=== PATIENT | male | born 1990 | race African-American/Black ===

== ENCOUNTER 2017-11-06 19:21 | Emergency (ER) | payer OTHER ==
[~2017-11-06] VITALS: Ht 180.3 cm; Wt 95.9 kg
[2017-11-06] MEDS ORDERED: METH500T PO (20:05)
[2017-11-06] MEDS ORDERED: VAL5T PO (20:05)
[2017-11-06 20:20] VITALS: BP 152/62
== END 2017-11-06 20:21 | disposition home or self-care (01) ==
LOC: ER 19:22
DX: S29.012A Strain of muscle and tendon of back wall of thorax, initial encounter (principal); R07.89 Other chest pain; M62.830 Muscle spasm of back; X50.9XXA Other and unspecified overexertion or strenuous movements or postures, initial encounter; Y93.89 Activity, other specified; Y92.89 Other specified places as the place of occurrence of the external cause; Y99.8 Other external cause status
CPT/HCPCS: 99283

== ENCOUNTER 2018-05-12 10:23 | Emergency (ER) | payer MEDICAID ==
[~2018-05-12] VITALS: Ht 180.3 cm; Wt 122.7 kg
[~2018-05-12 10:23] MED LIST: METH500T PO
[2018-05-12 10:24] VITALS: BP 144/81
[2018-05-12] MEDS ORDERED: acetaminophen 325mg tablet PO ONE (10:55)
[2018-05-12] MEDS ORDERED: ibuprofen tablet 400 MG TABLET PO ONE (10:55)
[2018-05-12] MEDS ORDERED: PRED20TA PO (10:56)
== END 2018-05-12 11:14 | disposition home or self-care (01) ==
LOC: ER 10:24
DX: R20.2 Paresthesia of skin (principal); M54.9 Dorsalgia, unspecified; R07.81 Pleurodynia; Z88.1 Allergy status to other antibiotic agents; Z79.899 Other long term (current) drug therapy
CPT/HCPCS: 99283

== ENCOUNTER 2021-05-12 14:21 | Emergency (ER) | payer MEDICAID ==
[~2021-05-12] VITALS: Ht 180.3 cm; Wt 125.7 kg
[2021-05-12 15:01] VITALS: BP 129/77
== END 2021-05-12 23:07 | disposition left against medical advice (07) ==
LOC: ER 14:22
DX: R21 Rash and other nonspecific skin eruption (principal); Z53.21 Procedure and treatment not carried out due to patient leaving prior to being seen by health care provider

== ENCOUNTER 2021-08-23 09:52 | Emergency (ER) | payer MEDICAID ==
[~2021-08-23] VITALS: Ht 180.3 cm; Wt 121.8 kg
[2021-08-23 10:08] VITALS: BP 122/75
[2021-08-23] MEDS ORDERED: ERYT1OIN6 LEFTEYE (10:12)
[2021-08-23] MEDS ORDERED: SULF1TAB49 PO (10:12)
== END 2021-08-23 10:52 | disposition home or self-care (01) ==
LOC: ER 09:54
DX: H00.015 Hordeolum externum left lower eyelid (principal); Z88.1 Allergy status to other antibiotic agents; Z79.2 Long term (current) use of antibiotics; Z79.899 Other long term (current) drug therapy
CPT/HCPCS: 99283

== ENCOUNTER 2022-12-05 22:41 | Emergency (ER) | payer MEDICAID ==
[~2022-12-05] VITALS: Ht 180.3 cm; Wt 114.5 kg
[2022-12-05 22:48] VITALS: BP 149/103
[2022-12-05 23:10] LABS: CLARITY,URINE CLEAR (Clear); COLOR,URINE YELLOW (Yellow); GLUCOSE, URINE NEGATIVE (Neg); KETONES,URINE NEGATIVE (Neg); LEUKOCYTE ESTERASE ,URINE NEGATIVE (Neg); NITRITES, URINE NEGATIVE (Neg); OCCULT BLOOD,URINE NEGATIVE (Neg); PROTEIN,URINE NEGATIVE (Neg); UROBILINOGEN,URINE 0.2 E.U/dL (0.2-1.0)
[2022-12-05 23:19] LABS: UA COLLECTION TYPE CLN CATCH MIDSTREAM
== END 2022-12-06 02:29 | disposition home or self-care (01) ==
LOC: ER 22:42
DX: M54.50 Low back pain, unspecified (principal); F17.200 Nicotine dependence, unspecified, uncomplicated; Z88.1 Allergy status to other antibiotic agents; Z79.899 Other long term (current) drug therapy
CPT/HCPCS: 81003; 99283

== ENCOUNTER 2023-01-21 07:53 | Emergency (ER) | payer MEDICAID ==
[~2023-01-21] VITALS: Ht 180.3 cm; Wt 99.2 kg
[2023-01-21 09:14] LABS: ALANINE AMINOTRANSFERASE 26 U/L (12-78); ALBUMIN 3.9 G/DL (3.4-5.0); ALBUMIN/GLOBULIN RATIO 0.8 (1.1-1.5); ALKALINE PHOSPHATASE 68 IU/L (46-116); ANION GAP 12 (8-16); ASPARTATE AMINO TRANSFERASE 20 U/L (10-37); BILIRUBIN,TOTAL 0.5 MG/DL (0.1-1.0); BLOOD UREA NITROGEN 10 MG/DL (7-18); BUN/CREATININE RATIO 9.1 (10.0-20.0); CALCIUM 9.6 MG/DL (8.5-10.1); CHLORIDE 103 MMOL/L (99-107); GLUCOSE 98 MG/DL (70-104); LIPASE 69 U/L (73-393); POTASSIUM 3.9 MMOL/L (3.5-5.1); SODIUM 141 MMOL/L (135-145); TOTAL CARBON DIOXIDE 26.4 MMOL/L (24-32); TOTAL PROTEIN 8.5 G/DL (6.4-8.2); eGFR > 90 ML/MIN
[2023-01-21 09:16] LABS: BASOPHILS % (AUTO) 0.3 % (0-1); EOSINOPHILS % (AUTO) 0.1 % (0-6); HEMATOCRIT 47.8 % (42.0-52.0); HEMOGLOBIN 15.9 g/dl (14.0-17.9); MEAN CORPUSCULAR HEMOGLOBIN 29.3 PG (27.0-31.0); MEAN CORPUSCULAR HGB CONC 33.4 g/dL (33.0-36.5); MEAN CORPUSCULAR VOLUME 87.8 FL (78-98); MEAN PLATELET VOLUME 6.9 FL (7.4-10.4); MONOCYTES # (AUTO) 1.2 X10'3 (0-0.9); MONOCYTES % (AUTO) 17.9 % (2-12); NEUTROPHILS # (AUTO) 4.5 X10'3 (1.8-7.7); NEUTROPHILS % (AUTO) 66.7 % (42-75); PLATELET COUNT 365 X10'3 (140-440); RED BLOOD COUNT 5.44 X10'6 (4.70-6.10); RED CELL DISTRIBUTION WIDTH 14.7 % (11.5-14.5); WHITE BLOOD COUNT 6.8 X10'3 (4.5-11.0)
[2023-01-21 10:11] LABS: TOTAL CELLS COUNTED 100
[2023-01-21 10:12] LABS: LARGE PLATELETS FEW; PLATELET ESTIMATE NORMAL
[2023-01-21 10:18] VITALS: BP 126/86
[2023-01-21 12:01] LABS: C DIFF SPECIMEN=DIARRHEA? ACCEPTABLE; C DIFFICILE TOXINS A&B NEGATIVE (Neg)
[2023-01-21] MEDS ORDERED: METR-159 PO (12:03)
[2023-01-21] MEDS ORDERED: CIPR750T14 PO (12:03)
== END 2023-01-21 12:13 | disposition home or self-care (01) ==
LOC: ER 07:53
DX: K52.9 Noninfective gastroenteritis and colitis, unspecified (principal); Z79.899 Other long term (current) drug therapy; Z88.1 Allergy status to other antibiotic agents
CPT/HCPCS: 36415; 74176; 80053; 83605; 83690; 85007; 85025; 87324; 87449; 99284

== ENCOUNTER 2023-01-25 18:59 | Emergency (ER) | payer MEDICAID ==
[~2023-01-25] VITALS: Ht 180.3 cm; Wt 111.4 kg
[~2023-01-25 18:59] MED LIST changes: +CIPR750T14 PO; +METR-159 PO
[2023-01-25 19:04] VITALS: BP 134/83
[2023-01-25 19:37] LABS: BASOPHILS % (AUTO) 0.6 % (0-1); EOSINOPHILS # (AUTO) 0.3 X10'3 (0-0.9); EOSINOPHILS % (AUTO) 4.1 % (0-6); HEMATOCRIT 39.5 % (42.0-52.0); HEMOGLOBIN 13.2 g/dl (14.0-17.9); LYMPHOCYTES # (AUTO) 1.9 X10'3 (1.1-4.8); LYMPHOCYTES % (AUTO) 26.5 % (21-51); MEAN CORPUSCULAR HEMOGLOBIN 29.2 PG (27.0-31.0); MEAN CORPUSCULAR HGB CONC 33.5 g/dL (33.0-36.5); MEAN PLATELET VOLUME 6.6 FL (7.4-10.4); MONOCYTES # (AUTO) 0.8 X10'3 (0-0.9); MONOCYTES % (AUTO) 10.8 % (2-12); NEUTROPHILS # (AUTO) 4.2 X10'3 (1.8-7.7); PLATELET COUNT 443 X10'3 (140-440); RED BLOOD COUNT 4.54 X10'6 (4.70-6.10); RED CELL DISTRIBUTION WIDTH 14.2 % (11.5-14.5); WHITE BLOOD COUNT 7.3 X10'3 (4.5-11.0)
[2023-01-25 19:37] LABS: CLARITY,URINE SLIGHTLY CLOUDY (Clear); COLOR,URINE YELLOW (Yellow); GLUCOSE, URINE NEGATIVE (Neg); KETONES,URINE TRACE mg/dl (Neg); LEUKOCYTE ESTERASE ,URINE TRACE (Neg); NITRITES, URINE NEGATIVE (Neg); OCCULT BLOOD,URINE NEGATIVE (Neg); PROTEIN,URINE NEGATIVE (Neg); UROBILINOGEN,URINE 0.2 E.U/dL (0.2-1.0)
[2023-01-25 19:47] LABS: UA COLLECTION TYPE CLN CATCH MIDSTREAM
[2023-01-25 19:48] LABS: BACTERIA,URINE NONE SEEN /HPF (Neg); MUCUS STRANDS MANY /LPF (Neg); RBC,URINE NONE SEEN /HPF (0-2); SQUAMOUS EPITHELIAL CELL,UR FEW /LPF (FEW); WBC,URINE 0-4 /HPF (0-4)
[2023-01-25 19:48] LABS: ALANINE AMINOTRANSFERASE 30 U/L (12-78); ALBUMIN 3.6 G/DL (3.4-5.0); ALBUMIN/GLOBULIN RATIO 1.1 (1.1-1.5); ANION GAP 6 (8-16); ASPARTATE AMINO TRANSFERASE 17 U/L (10-37); BILIRUBIN,TOTAL 0.2 MG/DL (0.1-1.0); BLOOD UREA NITROGEN 11 MG/DL (7-18); BUN/CREATININE RATIO 11.2 (10.0-20.0); CALCIUM 8.9 MG/DL (8.5-10.1); CHLORIDE 106 MMOL/L (99-107); CREATININE 0.98 MG/DL (0.60-1.10); GLUCOSE 115 MG/DL (70-104); POTASSIUM 3.9 MMOL/L (3.5-5.1); SODIUM 143 MMOL/L (135-145); eGFR > 90 ML/MIN
[2023-01-25 19:49] LABS: CAL OXALATE CRYSTALS 1+ /HPF (NEGATIVE)
[2023-01-25 19:49] LABS: ALKALINE PHOSPHATASE 61 IU/L (46-116); LIPASE 127 U/L (73-393)
== END 2023-01-25 20:27 | disposition home or self-care (01) ==
LOC: ER 19:00
DX: K52.9 Noninfective gastroenteritis and colitis, unspecified (principal); Z88.1 Allergy status to other antibiotic agents; Z79.899 Other long term (current) drug therapy
CPT/HCPCS: 36415; 80053; 81001; 83690; 84145; 85025; 87088; 99283